=== PATIENT | male | born 1970 | race Caucasian/White ===

== ENCOUNTER 2023-05-20 18:09 | Emergency (ER) | payer OTHER ==
[~2023-05-20] VITALS: Ht 177 cm; Wt 101.0 kg
[2023-05-20] MEDS ORDERED: ONDANSETRON INJECTION 4 MG/2 ML (SDV) IVP STA (18:18)
[2023-05-20] MEDS ORDERED: NS IV 1000 ML 1,000 ML IV STA (18:18)
[2023-05-20] MEDS ORDERED: KETOROLAC INJ 15 MG/ML VIAL IVP STA (18:18)
[2023-05-20] MEDS ORDERED: PANTOPRAZOLE INJECTION 40 MG VIAL IV STA (18:18)
[2023-05-20 18:28] LABS: BASOPHILS # (AUTO) 0.1 10^3/uL (0.0-0.1); BASOPHILS % (AUTO) 1 % (0-10); EOSINOPHILS # (AUTO) 0.4 10^3/uL (0.0-0.3); EOSINOPHILS % (AUTO) 3 % (0-10); HEMATOCRIT 45 % (40-54); HEMOGLOBIN 15.1 g/dL (13.3-17.7); LYMPHOCYTES # (AUTO) 3.6 10^3/uL (1.0-4.0); LYMPHOCYTES % (AUTO) 31 % (12-44); MEAN CORPUSCULAR HEMOGLOBIN 28 pg (25-34); MEAN CORPUSCULAR HGB CONC 34 g/dL (32-36); MEAN CORPUSCULAR VOLUME 84 fL (80-99); MEAN PLATELET VOLUME 9.5 fL (9.0-12.2); MONOCYTES # (AUTO) 0.7 10^3/uL (0.0-1.0); MONOCYTES % (AUTO) 6 % (0-12); NEUTROPHILS # (AUTO) 6.9 10^3/uL (1.8-7.8); NEUTROPHILS % (AUTO) 59 % (42-75); PLATELET COUNT 311 10^3/uL (130-400); WHITE BLOOD COUNT 11.6 10^3/uL (4.3-11.0)
--- NOTE | 2023-05-20 18:39 | ED Abdominal Pain ---
General Chief Complaint: Abdominal/GI Problems Stated Complaint: ABD PAIN Nursing Triage Note: Pt sent from [facility], for further evaluation and treatment of abdominal pain. Pt reports that he was given a GI cocktail at [facility] without relief. Pt reports that pain started at approximately 1630 Source of Information: Patient History of Present Illness Date Seen by Provider: May 20, 2023 Time Seen by Provider: 18:11 Initial Comments 52-year-old male presenting from walk-in urgent care at [facility] due to complaint of severe abdominal pain. He states that he was taking a nap and was woke up at 1630 with severe sharp pains in his abdomen. It is diffuse but seems to be worse in the epigastric and low pelvic area. He denies any prior surgery on his abdomen and denies having pain like this previously. He did receive a GI cockta il at the [facility] clinic which has helped slightly with his pain. He was having dry heaves on arrival to the ED. He denies having any diarrhea or change in his bowels or urine. He had last had a bowel movement and urinated around 230. He denied having any thing different to eat or drink today than usual. He last ate early after he was woken up with the pain at 1630 thinking that it might be hunger pains and ate 2 oatmeal cookies. He had a test for H. pylori done at the walk-in care clinic and it came back negative. Since he was still having severe pain they had advised him to come to the emergency department. He denies taking any chronic prescription medicines and has had no surgeries on his belly in the past. He did not try taking anything at home for the pain. Timing/Duration: 1-3 Hours Severity/Quality: Severe, Sharp Location: Epigastric, Generalized Abdomen Activities at Onset: Sleeping Modifying Factors: Worsens With Palpation Associated Symptoms: No Back Pain, No Chest Pain, No Diaphoresis, No Fever/Chills, No Fatigue, No Headache, No Heartburn; Nausea/Vomiting; No Rash, No Shortness of Air, No Swelling/Mass in Abdomen, No Syncope, No Weakness Allergies and Home Medications Allergies Coded Allergies: No Known Drug Allergies (Unverified , 05/20/23) Patient Home Medication List Home Medication List Reviewed: Yes Dicyclomine HCl (Dicyclomine HCl) 10 Mg Capsule, 10 MG PO Q6H PRN for ABDOMINAL PAIN Prescribed by: ZAYRA TAPIA on 05/20/232014 Ondansetron (Ondansetron Odt) 4 Mg Tab.rapdis, 4 MG PO Q6H PRN for NAUSEA/VOMITING Prescribed by: ZAYRA TAPIA on 05/20/232014 Pantoprazole Sodium (Pantoprazole Sodium) 40 Mg Tablet.dr, 40 MG PO DAILY Prescribed by: ZAYRA TAPIA on 05/20/232014 Review of Systems Review of Systems Constitutional: No chills, No fever EENTM: No Symptoms Reported Respiratory: No Symptoms Reported Cardiovascular: No Symptoms Reported Gastrointestinal: See HPI Genitourinary: Denies Pain Musculoskeletal: no symptoms reported Skin: no symptoms reported Psychiatric/Neurological: No Symptoms Reported Endocrine: No Symptoms Reported Past Uboqjgm-Pzqffl-Vixzci Hx Patient Social History Tobacco Use?: Yes Use of E-Cig and/or Vaping dev: No Alcohol Use?: No Pt feels they are or have been: No Immunizations Up To Date Influenza Vaccine Up-to-Date: No; Not Current First/Initial COVID19 Vaccinat: unvaccinated Past Medical History Surgery/Hospitalization HX: Denies any PMH Surgeries: No Physical Exam Vital Signs Vital Signs - First Documented 05/20/23 18:12 Temp 35.7 Pulse 63 Resp 18 B/P (MAP) 158/103 (121) Pulse Ox 95 O2 Delivery Room Air Capillary Refill : Less Than 3 Seconds Height/Weight/BMI Height: '" Weight: lbs. oz. kg; 32.00 BMI Method: General Appearance: WD/WN, mild distress HEENT: PERRL/EOMI, pharynx normal Neck: non-tender, full range of motion, supple, normal inspection Respiratory: chest non-tender, lungs clear, normal breath sounds, no respiratory distress, no accessory muscle use Cardiovascular: normal peripheral pulses, regular rate, rhythm Gastrointestinal: soft, no pulsatile mass, abnormal bowel sounds (Hypoactive); No guarding, No rebound; tenderness (Diffuse but worse in the epigastric and low pelvic) Rectal: deferred Extremities: normal range of motion, non-tender, normal capillary refill Neurologic/Psychiatric: manager concrete II-XII nml as tested, alert, oriented x 3 Skin: normal color, warm/dry Images 1 - Diffuse abdominal pain but states it is worse in the epigastric and lower pelvic area Progress/Results/Core Measures Results/Orders Lab Results Laboratory Tests Test 05/20/23 06:26 05/20/23 19:54 Range/Units White Blood Count 11.6 H 4.3-11.0 10^3/uL Red Blood Count 5.35 4.30-5.52 10^6/uL Hemoglobin 15.1 13.3-17.7 g/dL Hematocrit 45 40-54 % Mean Corpuscular Volume 84 80-99 fL Mean Corpuscular Hemoglobin 28 25-34 pg Mean Corpuscular Hemoglobin Concent 34 32-36 g/dL Red Cell Distribution Width 12.6 10.0-14.5 % Platelet Count 311 130-400 10^3/uL Mean Platelet Volume 9.5 9.0-12.2 fL Immature Granulocyte % (Auto) 0 % Neutrophils (%) (Auto) 59 42-75 % Lymphocytes (%) (Auto) 31 12-44 % Monocytes (%) (Auto) 6 0-12 % Eosinophils (%) (Auto) 3 0-10 % Basophils (%) (Auto) 1 0-10 % Neutrophils # (Auto) 6.9 1.8-7.8 10^3/uL Lymphocytes # (Auto) 3.6 1.0-4.0 10^3/uL Monocytes # (Auto) 0.7 0.0-1.0 10^3/uL Eosinophils # (Auto) 0.4 H 0.0-0.3 10^3/uL Basophils # (Auto) 0.1 0.0-0.1 10^3/uL Immature Granulocyte # (Auto) 0.0 0.0-0.1 10^3/uL Sodium Level 138 135-145 MMOL/L Potassium Level 3.8 3.6-5.0 MMOL/L Chloride Level 104 98-107 MMOL/L Carbon Dioxide Level 24 21-32 MMOL/L Anion Gap 10 5-14 MMOL/L Blood Urea Nitrogen 15 7-18 MG/DL Creatinine 1.17 0.60-1.30 MG/DL Estimat Glomerular Filtration Rate 75 BUN/Creatinine Ratio 13 Glucose Level 137 H 70-105 MG/DL Calcium Level 9.5 8.5-10.1 MG/DL Corrected Calcium 9.2 8.5-10.1 MG/DL Total Bilirubin 0.2 0.1-1.0 MG/DL Aspartate Amino Transf (AST/SGOT) 16 5-34 U/L Alanine Aminotransferase (ALT/SGPT) 19 0-55 U/L Alkaline Phosphatase 67 40-136 U/L Total Protein 7.5 6.4-8.2 GM/DL Albumin 4.4 3.2-4.5 GM/DL Lipase 26 8-78 U/L Urine Color YELLOW Urine Clarity CLEAR Urine pH 7.0 5-9 Urine Specific [place] 1.015 L 1.016-1.022 Urine Protein NEGATIVE NEGATIVE Urine Glucose (UA) NEGATIVE NEGATIVE Urine Ketones NEGATIVE NEGATIVE Urine Nitrite NEGATIVE NEGATIVE Urine Bilirubin NEGATIVE NEGATIVE Urine Urobilinogen 0.2 < = 1.0 MG/DL Urine Leukocyte Esterase NEGATIVE NEGATIVE Urine RBC (Auto) TRACE-I H NEGATIVE Urine RBC 0-2 /HPF Urine WBC RARE /HPF Urine Squamous Epithelial Cells NONE /HPF Urine Crystals NONE /LPF Urine Bacteria NEGATIVE /HPF Urine Casts NONE /LPF Urine Mucus SMALL H /LPF Urine Culture Indicated NO My Orders Orders - ZAYRA TAPIA MD Comprehensive Metabolic Panel (05/20/23 18:18) Lipase (05/20/23 18:18) Ua Culture If Indicated (05/20/23 18:18) Ed Iv/Invasive Line Start (05/20/23 18:18) Cbc With Automated Diff (05/20/23 18:18) Ct Abdomen/Pelvis W (05/20/23 18:18) Ns Iv 1000 Ml (Ns Iv 1000 Ml) (05/20/23 18:18) Ketorolac Injection (Ketorolac Injection (05/20/23 18:18) Pantoprazole Injection (Pantoprazole Inj (05/20/23 18:18) Ondansetron Injection (Ondansetron Inj (05/20/23 18:18) Iohexol Injection (Omnipaque 350 Mg/Ml 1 (05/20/23 19:30) Received Contrast (Hold Metformin- Contr (05/20/23 19:30) Ns (Ivpb) 100 Ml (Sodium Chloride 0.9% 1 (05/20/23 19:30) Rx-Dicyclomine Capsule (Rx-Bentyl Capsul (05/20/23 20:12) Rx-Ondansetron Po (Rx-Zofran Po) (05/20/23 20:12) Medications Given in ED Current Medications Medications Dose Ordered Sig/Krystal Route Start Time Stop Time Status Last Admin Dose Admin Iohexol 80 ml ONCE ONCE IV 05/20/23 19:30 05/20/23 19:31 DC 05/20/23 19:38 80 ML Sodium Chloride 100 ml ONCE ONCE IV 05/20/23 19:30 05/20/23 19:31 DC 05/20/23 19:38 100 ML Vital Signs/I&O 05/20/23 05/20/23 18:12 20:19 Temp 35.7 Pulse 63 57 Resp 18 16 B/P (MAP) 158/103 (121) 136/92 Pulse Ox 95 96 O2 Delivery Room Air Room Air Blood Pressure Mean: 121 Progress Progress Note #1: Progress Note Potential diagnosis of peptic ulcer disease, gastritis, colitis, diverticulitis, cholecystitis, appendicitis, GERD. Status post peripheral IV access and send labs for complete blood count, compr ehensive metabolic profile, lipase, urinalysis. CT scan of the abdomen and pelvis with IV contrast to look for acute pathology in the belly to be causing his symptoms. Administer normal saline 1 L IV fluid bolus for hydration, Toradol 15 mg IV for pain, pantoprazole 40 mg IV for gastritis, Zofran 4 mg IV for nausea and dry heaves. Keep him n.p.o. until testing is back. Progress Note #2: Time: 18:54 Progress Note White blood cell count at upper limit of normal at 11.6. Hemoglobin normal at 15.1. Comprehensive metabolic profile did not show any acute electrolyte abnormality. His BUN was 15 with a creatinine of 1.17. Glucose was slightly el evated at 137. Lipase was negative at 26. And no elevation of his LFTs. He continues to refuse to urinate stating that he needs to be able to drink something to be able to pee. Continue with patient being n.p.o. until all the results are back from the CT 1930 on my personal review and interpretation of the CT scan of the abdomen and pelvis with IV contrast I did not appreciate any acute obstruction or blockage. It looks like his bladder was full but patient continues to refuse to urinate until he is allowed to eat or drink something. He states that his pain is improved and down to 1-3 but occasionally will spike up to 5. Awaiting radiology reading on the CT. Progress Note #3: Time: 19:54 Progress Note I reviewed the radiologist report on the CT scan of the abdomen and pelvis with IV contrast. They also did not see any acute process to account for the patient's complaints. Will review results and findings with the patient. Ramos mmend bland low-fat diet and follow-up with surgery for possible EGD and possible colonoscopy. Will continue acid reducing medicine such as pantoprazole by mouth. Will try to get a urine specimen from the patient since his CT scan definitely shows he is got plenty of urine in his bladder although he has refused to provide a urine specimen until he was allowed to drink something. Patient did finally urinate and it did not show any signs of infection or acute process to explain his pain and symptoms. Patient reports that his pain continued to improve after treatment in the ED. Counseled on follow-up and return precautions. Advised that he likely would need endoscopy if he continues to have pain. Try treating with pantoprazole 40 mg a day for an acid smash piecer, Zofran 4 mg ODT every 6 hours as needed for nausea and vomiting, Bentyl or dicyclomine 10 mg p.o. 4 times daily as needed for abdominal pain and cramping. Encouraged to follow a low-fat bland diet. Check back with the clinic about further testing and evaluation as needed. If having worsening symptoms he can return for repeat evaluation to see if there have been any change since his symptoms of just started within a few hours of arriving to the ED. Diagnostic Imaging Diagonstic Imaging: CT Plain Films/CT/US/NM/MRI: abdomen, pelvis Comments NAME: MERCED CHAVEZ [facility] REC#: [id number] PT STATUS: REG ER : 1970 PHYSICIAN: ZAYRA TAPIA MD ADMIT DATE: 05/20/23/ER FS Signed Date of Exam:05/20/23 CT ABDOMEN/PELVIS W PROCEDURE: CT abdomen and pelvis with contrast. TECHNIQUE: Multiple contiguous axial images were obtained through the abdomen and pelvis after administration of intravenous contrast. Auto Exposure Controls were utilized during the CT exam to meet ALARA standards for radiation dose reduction. All CT scans use one or more of the following dose optimizing techniques: automated exposure control, MA and/or KvP adjustment based on patient size and exam type or iterative reconstruction. INDICATION: Abdominal pain. COMPARISON: None. FINDINGS: Included views of the lung bases demonstrate no significant abnormality. The liver demonstrates multiple small hepatic cysts. The gallbladder is normal. The spleen is normal. Adrenal glands are normal. The pancreas is normal. The kidneys are normal. No hydronephrosis or cholelithiasis. The bowel is nondilated. The prostate is enlarged. The urinary bladder is normal. The appendix is normal. There are few scattered diverticula within the descending colon without evidence of acute diverticulitis. Aorta and IVC are normal. No abdominal pelvic lymphadenopathy. Small fat-containing bilateral inguinal hernias. No free air, loculated fluid collections, or ascites. The osseous structures demonstrate no lytic or sclerotic bone lesions. Chronic bilateral pars defects of L5 with mild anterolisthesis of L5-S1. IMPRESSION: No acute findings in the abdomen or pelvis. Chronic/incidental findings as above. Dictated by: Dictated on workstation # [id number] Dict: 05/20/231935 Trans: 05/20/231938 [facility] [place] [id number] Interpreted by: CHRIS RIVERA DO Electronically signed by: CHRIS RIVERA DO 05/20/231938 Reviewed: Reviewed by Me Departure Impression Primary Impression: Epigastric abdominal pain Additional Impression: Diffuse abdominal pain Disposition: HOME, SELF-CARE Condition: Stable Departure-Patient Inst. Decision time for Depature: 20:13 Referrals: RAHEEM VANG MD (PCP) Primary Care Physician Patient Instructions: Gastritis ED, Acid Reflux, Adult and Adolescent ED, Abdominal Pain, Adult ED, Ulcer and Gastritis Diet Add. Discharge Instructions: Try following a low-fat bland diet. Stay well-hydrated and drink plenty of fluids. Take the acid reducing medicine to help with possible ulcer or gastritis. Follow-up with the clinic and they may need to order scope to look at the lining of your stomach and or colon. Use the dicyclomine or Bentyl to help with abdominal cramping and pain. The dissolving nausea medicine as needed for helping to control nausea and making sure that you can eat and drink well. If having worsening symptoms or not improving then you could return for repeat evaluation. Otherwise definitely follow-up through the clinic for possible outpatient testing to further evaluate for ulcers or inflammation of the colon and stomach. All discharge instructions reviewed with patient and/or family. Voiced underst anding. Scripts Pantoprazole Sodium (Pantoprazole Sodium) 40 Mg Tablet.dr 40 MG PO DAILY for 30 Days, #30 TAB 0 Refills Prov: ZAYRA TAPIA MD 05/20/23 Ondansetron (Ondansetron Odt) 4 Mg Tab.rapdis 4 MG PO Q6H PRN for NAUSEA/VOMITING for 3 Days, #12 TAB 0 Refills Prov: ZAYRA TAPIA MD 05/20/23 Dicyclomine HCl (Dicyclomine HCl) 10 Mg Capsule 10 MG PO Q6H PRN for ABDOMINAL PAIN for 5 Days, #20 CAP 0 Refills Prov: ZAYRA TAPIA MD 05/20/23 ZAYRA TAPIA MD May 20, 2023 18:39
[2023-05-20 18:47] LABS: POTASSIUM 3.8 MMOL/L (3.6-5.0)
[2023-05-20 18:48] LABS: BILIRUBIN,TOTAL 0.2 MG/DL (0.1-1.0); CALCIUM 9.5 MG/DL (8.5-10.1); CREATININE SERUM 1.17 MG/DL (0.60-1.30); TOTAL PROTEIN 7.5 GM/DL (6.4-8.2)
[2023-05-20 18:49] LABS: ALBUMIN 4.4 GM/DL (3.2-4.5)
[2023-05-20] MEDS ORDERED: HOLD METFORMIN - RECEIVED CONTRAST 20 ML VIAL IV SCH (19:30)
[2023-05-20] MEDS ORDERED: IOHEXOL 350 MG/ML 100 ML (OMNIPAQUE 350) VIAL IV ONE (19:30)
[2023-05-20] MEDS ORDERED: NS 100 ML (IVPB) BAG IV ONE (19:30)
--- NOTE | 2023-05-20 19:40 | Diagnostic Imaging Report ---
PROCEDURE: CT abdomen and pelvis with contrast. TECHNIQUE: Multiple contiguous axial images were obtained through the abdomen and pelvis after administration of intravenous contrast. Auto Exposure Controls were utilized during the CT exam to meet ALARA standards for radiation dose reduction. All CT scans use one or more of the following dose optimizing techniques: automated exposure control, MA and/or KvP adjustment based on patient size and exam type or iterative reconstruction. INDICATION: Abdominal pain. COMPARISON: None. FINDINGS: Included views of the lung bases demonstrate no significant abnormality. The liver demonstrates multiple small hepatic cysts. The gallbladder is normal. The spleen is normal. Adrenal glands are normal. The pancreas is normal. The kidneys are normal. No hydronephrosis or cholelithiasis. The bowel is nondilated. The prostate is enlarged. The urinary bladder is normal. The appendix is normal. There are few scattered diverticula within the descending colon without evidence of acute diverticulitis. Aorta and IVC are normal. No abdominal pelvic lymphadenopathy. Small fat-containing bilateral inguinal hernias. No free air, loculated fluid collections, or ascites. The osseous structures demonstrate no lytic or sclerotic bone lesions. Chronic bilateral pars defects of L5 with mild anterolisthesis of L5-S1. IMPRESSION: No acute findings in the abdomen or pelvis. Chronic/incidental findings as above. Dictated by: Dictated on workstation # [id number]
[2023-05-20 20:00] LABS: BILIRUBIN,URINE NEGATIVE (NEGATIVE); CLARITY,URINE CLEAR; COLOR,URINE YELLOW; GLUCOSE, URINE (UA) NEGATIVE (NEGATIVE); KETONES,URINE NEGATIVE (NEGATIVE); LEUKOCYTE ESTERASE ,URINE NEGATIVE (NEGATIVE); NITRITE,URINE NEGATIVE (NEGATIVE); PROTEIN,URINE NEGATIVE (NEGATIVE)
[2023-05-20 20:04] LABS: BACTERIA,URINE NEGATIVE /HPF; RBC,URINE 0-2 /HPF; WBC,URINE RARE /HPF
[2023-05-20] MEDS ORDERED: RX-DICYCLOMINE 10 MG (BENTYL) CAP PPK#4 PO STA (20:12)
[2023-05-20] MEDS ORDERED: RX-ONDANSETRON 4 MG ODT (ZOFRAN) PPK #4 PO STA (20:12)
[2023-05-20] MEDS ORDERED: DICY10CA12 PO (20:15)
[2023-05-20] MEDS ORDERED: ONDA4TAB11 PO (20:15)
[2023-05-20] MEDS ORDERED: PANT40TA52 PO (20:15)
[2023-05-20 20:19] VITALS: BP 136/92
== END 2023-05-20 20:20 | disposition home or self-care (01) ==
LOC: ER FS 18:11
DX: R10.13 Epigastric pain (principal); R10.84 Generalized abdominal pain; Z28.310 Unvaccinated for COVID-19
CPT/HCPCS: 36415; 74177; 80053; 81000; 83690; 85025; Q9967

== ENCOUNTER 2023-07-15 18:08 | Emergency (ER) | payer OTHER ==
[~2023-07-15] VITALS: Ht 177 cm; Wt 103.1 kg
[~2023-07-15 18:08] MED LIST: DICY-11 PO; ONDA4TAB11 PO; PANT40TA52 PO
[2023-07-15 18:37] LABS: BASOPHILS # (AUTO) 0.1 10^3/uL (0.0-0.1); BASOPHILS % (AUTO) 1 % (0-10); EOSINOPHILS # (AUTO) 0.2 10^3/uL (0.0-0.3); EOSINOPHILS % (AUTO) 1 % (0-10); HEMATOCRIT 46 % (40-54); HEMOGLOBIN 15.3 g/dL (13.3-17.7); LYMPHOCYTES # (AUTO) 3.2 10^3/uL (1.0-4.0); LYMPHOCYTES % (AUTO) 20 % (12-44); MEAN CORPUSCULAR HEMOGLOBIN 28 pg (25-34); MEAN CORPUSCULAR HGB CONC 33 g/dL (32-36); MEAN CORPUSCULAR VOLUME 84 fL (80-99); MEAN PLATELET VOLUME 9.5 fL (9.0-12.2); MONOCYTES # (AUTO) 0.7 10^3/uL (0.0-1.0); MONOCYTES % (AUTO) 4 % (0-12); NEUTROPHILS # (AUTO) 12.1 10^3/uL (1.8-7.8); NEUTROPHILS % (AUTO) 74 % (42-75); PLATELET COUNT 300 10^3/uL (130-400); WHITE BLOOD COUNT 16.4 10^3/uL (4.3-11.0)
--- NOTE | 2023-07-15 18:43 | Diagnostic Imaging Report ---
CLINICAL INDICATION: Patient with chest pain. EXAM: Portable chest x-ray upright view. COMPARISON: None. FINDINGS: Lungs/pleura: Lungs are clear. There is no pneumothorax. There is no pleural effusion. Mediastinum: Unremarkable. Pulmonary vasculature: Unremarkable. Heart: Unremarkable. Bones/extrathoracic soft tissue: Unremarkable. IMPRESSION: There is no radiographic evidence of acute cardiopulmonary process. Dictated by: Dictated on workstation # [id number]
[2023-07-15 18:55] LABS: SODIUM 139 MMOL/L (135-145)
[2023-07-15 18:56] LABS: CHLORIDE 101 MMOL/L (98-107); POTASSIUM 3.9 MMOL/L (3.6-5.0)
[2023-07-15 19:02] LABS: ALANINE AMINOTRANSFERASE 22 U/L (0-55); ALBUMIN 4.4 GM/DL (3.2-4.5); ALKALINE PHOSPHATASE 63 U/L (40-136); BILIRUBIN,TOTAL 0.2 MG/DL (0.1-1.0); BUN/CREATININE RATIO 11; CALCIUM 9.5 MG/DL (8.5-10.1); CARBON DIOXIDE 26 MMOL/L (21-32); CREATININE SERUM 1.28 MG/DL (0.60-1.30); GFR ESTIMATED 68; GLUCOSE 111 MG/DL (70-105); LIPASE 34 U/L (8-78); MAGNESIUM 2.2 MG/DL (1.6-2.4); TOTAL PROTEIN 7.8 GM/DL (6.4-8.2)
[2023-07-15 19:09] LABS: ATYPICAL LYMPHOCYTES 9 %; BAND NEUTROPHILS 2 %; EOSINOPHILS % (MANUAL) 2 %; LYMPHOCYTES % (MANUAL) 10 %; MONOCYTES % (MANUAL) 6 %; NEUTROPHILS % (MANUAL) 71 %
[2023-07-15 19:10] LABS: PLATELET ESTIMATE ADEQUATE; RBC MORPH NORMAL
[2023-07-15] MEDS ORDERED: FAMOTIDINE INJ 20MG/2ML VIAL IVP ONE (19:15)
[2023-07-15] MEDS ORDERED: KETOROLAC INJ 15 MG/ML VIAL IVP ONE (19:15)
--- NOTE | 2023-07-15 19:19 | ED Abdominal Pain ---
General Chief Complaint: Abdominal/GI Problems Stated Complaint: ABD PAIN Nursing Triage Note: Patient has presented to ER with cc of abd pain and loose stools. This started around noon today. He had loose stools today. This happened about 2 months ago and he was in the ER and no diagnosis was made. He states the pain started in his chest and has moved down to a band across his upper abd. History of Present Illness Date Seen by Provider: Jul 15, 2023 Time Seen by Provider: 18:10 Initial Comments 52-year-old male is here with complaints of abdominal pain and loose stools which began around noon today. Patient had similar symptoms 2 months ago in April of this year, and had come to the ER and had a CT scan of the abdomen wh ich was negative. Patient describes the pain as starting in his chest and moving downwards in a band like distribution to the upper abdomen. Denies acid reflux, fever and chills, constipation, diarrhea, nausea, vomiting. No known sick contacts. Allergies and Home Medications Allergies Coded Allergies: No Known Drug Allergies (Unverified , 05/20/23) Patient Home Medication List Home Medication List Reviewed: Yes Dicyclomine HCl (Dicyclomine HCl) 10 Mg Capsule, 10 MG PO Q6H PRN for ABDOMINAL PAIN Prescribed by: ZAYRA TAPIA on 05/20/232014 Ondansetron (Ondansetron Odt) 4 Mg Tab.rapdis, 4 MG PO Q6H PRN for NAUSEA/VOMITING Prescribed by: ZAYRA TAPIA on 05/20/232014 Pantoprazole Sodium (Pantoprazole Sodium) 40 Mg Tablet.dr, 40 MG PO DAILY Prescribed by: ZAYRA TAPIA on 05/20/232014 Review of Systems Review of Systems Constitutional: no symptoms reported EENTM: No Symptoms Reported Respiratory: No Symptoms Reported Cardiovascular: No Symptoms Reported Gastrointestinal: Abdominal Pain Past Yqweiyi-Ywjadv-Kcacvc Hx Patient Social History Tobacco Use?: No Substance use?: No Alcohol Use?: No Immunizations Up To Date First/Initial COVID19 Vaccinat: unvaccinated Past Medical History Surgery/Hospitalization HX: Denies any PMH Surgeries: No Physical Exam Vital Signs Vital Signs - First Documented 07/15/23 18:18 Temp 37.2 Pulse 65 Resp 12 B/P (MAP) 172/100 (124) Pulse Ox 98 O2 Delivery Room Air Capillary Refill : Height/Weight/BMI Height: '" Weight: lbs. oz. kg; 32.00 BMI Method: General Appearance: WD/WN, no apparent distress HEENT: PERRL/EOMI, normal ENT inspection Neck: full range of motion Respiratory: chest non-tender, lungs clear, normal breath sounds Cardiovascular: regular rate, rhythm Gastrointestinal: normal bowel sounds, soft, tenderness (in the epigatric area and alanna-umbilical area) Extremities: normal range of motion Back: normal inspection, no CVA tenderness Neurologic/Psychiatric: alert, normal mood/affect, oriented x 3 Skin: normal color Focused Exam Lactate Level 07/15/23 18:20: Lactic Acid Level 1.02 Lactic Acid Level Laboratory Tests Test 07/15/23 18:20 Lactic Acid Level 1.02 MMOL/L (0.50-2.00) Progress/Results/Core Measures Results/Orders Lab Results Laboratory Tests Test 07/15/23 18:20 07/15/23 21:51 Range/Units White Blood Count 16.4 H 4.3-11.0 10^3/uL Red Blood Count 5.51 4.30-5.52 10^6/uL Hemoglobin 15.3 13.3-17.7 g/dL Hematocrit 46 40-54 % Mean Corpuscular Volume 84 80-99 fL Mean Corpuscular Hemoglobin 28 25-34 pg Mean Corpuscular Hemoglobin Concent 33 32-36 g/dL Red Cell Distribution Width 13.0 10.0-14.5 % Platelet Count 300 130-400 10^3/uL Mean Platelet Volume 9.5 9.0-12.2 fL Immature Granulocyte % (Auto) 1 % Neutrophils (%) (Auto) 74 42-75 % Lymphocytes (%) (Auto) 20 12-44 % Monocytes (%) (Auto) 4 0-12 % Eosinophils (%) (Auto) 1 0-10 % Basophils (%) (Auto) 1 0-10 % Neutrophils # (Auto) 12.1 H 1.8-7.8 10^3/uL Lymphocytes # (Auto) 3.2 1.0-4.0 10^3/uL Monocytes # (Auto) 0.7 0.0-1.0 10^3/uL Eosinophils # (Auto) 0.2 0.0-0.3 10^3/uL Basophils # (Auto) 0.1 0.0-0.1 10^3/uL Immature Granulocyte # (Auto) 0.1 0.0-0.1 10^3/uL Neutrophils % (Manual) 71 % Lymphocytes % (Manual) 10 % Monocytes % (Manual) 6 % Eosinophils % (Manual) 2 % Band Neutrophils 2 % Atypical Lymphocytes 9 % Platelet Estimate ADEQUATE Percent Immature Platelet Fraction 3.3 0.0-7.6 % Blood Morphology Comment NORMAL Sodium Level 139 135-145 MMOL/L Potassium Level 3.9 3.6-5.0 MMOL/L Chloride Level 101 98-107 MMOL/L Carbon Dioxide Level 26 21-32 MMOL/L Anion Gap 12 5-14 MMOL/L Blood Urea Nitrogen 14 7-18 MG/DL Creatinine 1.28 0.60-1.30 MG/DL Estimat Glomerular Filtration Rate 68 BUN/Creatinine Ratio 11 Glucose Level 111 H 70-105 MG/DL Lactic Acid Level 1.02 0.50-2.00 MMOL/L Calcium Level 9.5 8.5-10.1 MG/DL Corrected Calcium 9.2 8.5-10.1 MG/DL Magnesium Level 2.2 1.6-2.4 MG/DL Total Bilirubin 0.2 0.1-1.0 MG/DL Aspartate Amino Transf (AST/SGOT) 19 5-34 U/L Alanine Aminotransferase (ALT/SGPT) 22 0-55 U/L Alkaline Phosphatase 63 40-136 U/L Troponin I < 0.30 <0.30 NG/ML Total Protein 7.8 6.4-8.2 GM/DL Albumin 4.4 3.2-4.5 GM/DL Lipase 34 8-78 U/L Serum Alcohol < 10 <10 MG/DL Urine Color YELLOW Urine Clarity CLEAR Urine pH 6.5 5-9 Urine Specific [place] <=1.005 1.016-1.022 Urine Protein NEGATIVE NEGATIVE Urine Glucose (UA) NEGATIVE NEGATIVE Urine Ketones NEGATIVE NEGATIVE Urine Nitrite NEGATIVE NEGATIVE Urine Bilirubin NEGATIVE NEGATIVE Urine Urobilinogen 0.2 < = 1.0 MG/DL Urine Leukocyte Esterase NEGATIVE NEGATIVE Urine RBC (Auto) TRACE-I H NEGATIVE Urine RBC RARE /HPF Urine WBC NONE /HPF Urine Squamous Epithelial Cells RARE /HPF Urine Crystals NONE /LPF Urine Bacteria NEGATIVE /HPF Urine Casts NONE /LPF Urine Mucus NEGATIVE /LPF Urine Culture Indicated NO Urine Opiates Screen NEGATIVE NEGATIVE Urine Oxycodone Screen NEGATIVE NEGATIVE Urine Methadone Screen NEGATIVE NEGATIVE Urine Propoxyphene Screen NEGATIVE NEGATIVE Urine Barbiturates Screen NEGATIVE NEGATIVE Ur Tricyclic Antidepressants Screen NEGATIVE NEGATIVE Urine Phencyclidine Screen NEGATIVE NEGATIVE Urine Amphetamines Screen NEGATIVE NEGATIVE Urine Methamphetamines Screen NEGATIVE NEGATIVE Urine Benzodiazepines Screen NEGATIVE NEGATIVE Urine Cocaine Screen NEGATIVE NEGATIVE Urine Cannabinoids Screen NEGATIVE NEGATIVE My Orders Orders - CORETTA CADET MD Drug Screen Stat (Urine) (07/15/23 18:10) Ua Culture If Indicated (07/15/23 18:10) Continuous Ekg Monitoring (07/15/23 18:18) Ekg Tracing (07/15/23 18:18) Chest 1 View Ap/Pa Only (07/15/23 18:19) Alcohol (07/15/23 18:19) Cbc And Automated Diff (07/15/23 18:19) Comprehensive Metabolic Panel (07/15/23 18:19) Lactic Acid Analyzer (07/15/23 18:19) Lipase (07/15/23 18:19) Magnesium (07/15/23 18:19) Influenza A And B By Pcr (07/15/23 18:19) Troponin I Fs (07/15/23 18:19) Covid 19 Inhouse Test (07/15/23 18:19) Manual Differential (07/15/23 18:20) Ketorolac Injection (Ketorolac Injection (07/15/23 19:15) Famotidine Injection (Famotidine Injec (07/15/23 19:15) Ct Abdomen/Pelvis W (07/15/23 19:17) Famotidine Injection (Famotidine Injec (07/15/23 19:32) Ketorolac Injection (Ketorolac Injection (07/15/23 19:32) Iohexol Injection (Omnipaque 350 Mg/Ml 1 (07/15/23 20:15) Received Contrast (Hold Metformin- Contr (07/15/23 20:15) Ns (Ivpb) 100 Ml (Sodium Chloride 0.9% 1 (07/15/23 20:15) Medications Given in ED Current Medications Medications Dose Ordered Sig/Krystal Route Start Time Stop Time Status Last Admin Dose Admin Famotidine 20 mg ONCE ONCE IVP 07/15/23 19:15 07/15/23 19:43 DC 07/15/23 19:35 20 MG Iohexol 100 ml ONCE ONCE IV 07/15/23 20:15 07/15/23 21:24 DC 07/15/23 20:09 80 ML Ketorolac Tromethamine 15 mg ONCE ONCE IVP 07/15/23 19:15 07/15/23 19:43 DC 07/15/23 19:35 15 MG Vital Signs/I&O 07/15/23 18:18 Temp 37.2 Pulse 65 Resp 12 B/P (MAP) 172/100 (124) Pulse Ox 98 O2 Delivery Room Air Blood Pressure Mean: 124 Progress Progress Note : Progress Note 1. ABDOMINAL PAIN: - CT ABD: no acute findings - CXR: no acute findings - CBC/CMP: unremarkable except for WBC of 16.4 - UA/ UDS: negative - Lipase: normal - Troponin: undetected - EKG:non-ischemic -Differential diagnosis includes gastric ulcer/gastritis/irritable bowel syndrome/inflammatory bowel disease - Toradol 15mg iv/ Pepcid 20mg iv STAT. Pt's pain resolved with this. - Advised to follow up with General surgery at [place], Dr. Odom's office for endoscopy and colonoscopy. Call to make appointment - Advised bland food, and do not skip any meals. Avoid spicy food, carbonated drinks, greasy, fatty foods. Adequate hydration advised - Advised over the counter Pepcid 20mg daily -The patient was seen in the ED, and treated appropriately to presentation at a specific point in time. Patient is informed that there is a possibility that disease and illness can evolve and change in acuity rapidly or slowly after patient is discharged from the ER. Precautionary advice given to the patient for immediate return to ER if symptoms worsen or do not resolve, and to seek emergency care sooner rather than later. Pt also advised on the importance of PCP follow up and compliance with management and follow up plan with PCP and/or specialist, as this is part of the management plan. Pt verbally expressed understanding. Initial ECG Impression Date: Jul 15, 2023 Initial ECG Impression Time: 18:21 Initial ECG Rate: 55 Initial ECG Rhythm: S.Ellis Initial ECG Intervals: Normal Initial ECG Impression: Normal Initial ECG Comparisson: No Previous ECG Available Diagnostic Imaging Diagonstic Imaging: Xray, CT Plain Films/CT/US/NM/MRI: chest, abdomen Comments [facility], [place], [place] NAME: MERCED CHAVEZ MED REC#: [id number] PT STATUS: REG ER : 1970 PHYSICIAN: CORETTA CADET MD ADMIT DATE: 07/15/23/ER FS Signed Date of Exam:07/15/23 CT ABDOMEN/PELVIS W PROCEDURE: CT abdomen and pelvis with contrast. TECHNIQUE: Multiple contiguous axial images were obtained through the abdomen and pelvis after administration of intravenous contrast. Auto Exposure Controls were utilized during the CT exam to meet ALARA standards for radiation dose reduction. All CT scans use one or more of the following dose optimizing techniques: automated exposure control, MA and/or KvP adjustment based on patient size and exam type or iterative reconstruction. INDICATION: Epigastric pain Lung bases are clear. There are several small cysts in the liver. These are unchanged from previous exam done on 05/20/2023. Gallbladder appears normal. Pancreas appears normal. Spleen appears normal. Adrenals appear normal. Kidneys appear normal. Small bowel is not dilated. Appendix is normal. Colon is unremarkable. Urinary bladder is normal. Prostate is not enlarged. There is no intraperitoneal free air or free fluid. IMPRESSION: No acute abnormality seen in the abdomen or pelvis Dictated by: Dictated on workstation # [id number] Dict: 07/15/232109 Trans: 07/15/232120 [facility] [id number] Interpreted by: GLENNY FLORES MD Electronically signed by: GLENNY FLORES MD 07/15/232120 [facility] [place], [place] NAME: MERCED CHAVEZ [facility] REC#: [id number] PT STATUS: REG ER : 1970 PHYSICIAN: CORETTA CADET MD ADMIT DATE: 07/15/23/ER FS Draft Date of Exam:07/15/23 CHEST 1 VIEW AP/PA ONLY CLINICAL INDICATION: Patient with chest pain. EXAM: Portable chest x-ray upright view. COMPARISON: None. FINDINGS: Lungs/pleura: Lungs are clear. There is no pneumothorax. There is no pleural effusion. Mediastinum: Unremarkable. Pulmonary vasculature: Unremarkable. Heart: Unremarkable. Bones/extrathoracic soft tissue: Unremarkable. IMPRESSION: There is no radiographic evidence of acute cardiopulmonary process. Dictated on workstation # [id number] Dict: 07/15/23 183 Trans: 07/15/23 184 [facility] [id number] Interpreted by: ABHI PONCE MD Electronically signed by: Departure Impression Primary Impression: Abdominal pain Qualified Codes: R10.13 - Epigastric pain Additional Impression: Gastritis Qualified Codes: K29.00 - Acute gastritis without bleeding Disposition: HOME, SELF-CARE Condition: Improved Departure-Patient Inst. Referrals: RAHEEM VANG MD (PCP/Family) Primary Care Physician BRENDA ODOM MD Patient Instructions: Gastritis ED, Severe Abdominal Pain, Adult (DC) Add. Discharge Instructions: - Advised to follow up with General surgery at [place], Dr. Odom's office for endoscopy and colonoscopy. Call to make appointment - Advised bland food, and do not skip any meals. Avoid spicy food, carbonated drinks, greasy, fatty foods. Adequate hydration advised - Advised over the counter Pepcid 20mg daily All discharge instructions reviewed with patient and/or family. Voiced understanding. CORETTA CADET MD Jul 15, 2023 19:19
[2023-07-15] MEDS ORDERED: KETOROLAC INJ 15 MG/ML VIAL ONE (19:32)
[2023-07-15] MEDS ORDERED: FAMOTIDINE INJ 20MG/2ML VIAL ONE (19:32)
[2023-07-15] MEDS ORDERED: NS 100 ML (IVPB) BAG IV ONE (20:15)
[2023-07-15] MEDS ORDERED: HOLD METFORMIN - RECEIVED CONTRAST 20 ML VIAL IV SCH (20:15)
[2023-07-15] MEDS ORDERED: IOHEXOL 350 MG/ML 100 ML (OMNIPAQUE 350) VIAL IV ONE (20:15)
--- NOTE | 2023-07-15 21:17 | Diagnostic Imaging Report ---
PROCEDURE: CT abdomen and pelvis with contrast. TECHNIQUE: Multiple contiguous axial images were obtained through the abdomen and pelvis after administration of intravenous contrast. Auto Exposure Controls were utilized during the CT exam to meet ALARA standards for radiation dose reduction. All CT scans use one or more of the following dose optimizing techniques: automated exposure control, MA and/or KvP adjustment based on patient size and exam type or iterative reconstruction. INDICATION: Epigastric pain Lung bases are clear. There are several small cysts in the liver. These are unchanged from previous exam done on 05/20/2023. Gallbladder appears normal. Pancreas appears normal. Spleen appears normal. Adrenals appear normal. Kidneys appear normal. Small bowel is not dilated. Appendix is normal. Colon is unremarkable. Urinary bladder is normal. Prostate is not enlarged. There is no intraperitoneal free air or free fluid. IMPRESSION: No acute abnormality seen in the abdomen or pelvis Dictated by: Dictated on workstation # [id number]
[2023-07-15 21:57] LABS: BILIRUBIN,URINE NEGATIVE (NEGATIVE); CLARITY,URINE CLEAR; COLOR,URINE YELLOW; GLUCOSE, URINE (UA) NEGATIVE (NEGATIVE); KETONES,URINE NEGATIVE (NEGATIVE); LEUKOCYTE ESTERASE ,URINE NEGATIVE (NEGATIVE); NITRITE,URINE NEGATIVE (NEGATIVE); PH,URINE 6.5 (5-9); PROTEIN,URINE NEGATIVE (NEGATIVE)
[2023-07-15 22:06] LABS: BACTERIA,URINE NEGATIVE /HPF; RBC,URINE RARE /HPF; SQUAMOUS EPITHELIAL CELL,UR RARE /HPF
[2023-07-15 22:07] LABS: AMPHETAMINE SCREEN, URINE NEGATIVE (NEGATIVE); BARBITURATE SCREEN URINE NEGATIVE (NEGATIVE); CANNABINOID SCREEN, URINE NEGATIVE (NEGATIVE); COCAINE SCREEN URINE NEGATIVE (NEGATIVE); METHADONE STAT NEGATIVE (NEGATIVE); OPIATE SCREEN URINE NEGATIVE (NEGATIVE); OXYCODONE STAT NEGATIVE (NEGATIVE); PROPOXYPHENE STAT NEGATIVE (NEGATIVE); TRICYCLIC ANTIDEPRESSANTS SCRE NEGATIVE (NEGATIVE)
[2023-07-15 22:30] VITALS: BP 126/64
== END 2023-07-15 22:30 | disposition home or self-care (01) ==
LOC: EDUNIT# 18:08 → ER FS 18:10
DX: K29.70 Gastritis, unspecified, without bleeding (principal); R00.1 Bradycardia, unspecified; Z28.310 Unvaccinated for COVID-19; Z20.822 Contact with and (suspected) exposure to COVID-19
CPT/HCPCS: 71045; 74177; 80053; 80306; 81000; 83605; 83690; 83735; 84484; 85007; 93005; 99284; G0480; 36415; 80320; 85027